=== PATIENT | male | born 1995 | race Two or more races ===

== ENCOUNTER → 2018-02-21 | Outpatient (CLI) | payer OTHER | END | disposition home or self-care (01) | LOC: RAH 11:44 → EEVIPCON 11:44 | PROVIDERS: ATTEND Internal Medicine | DX: N63.10 Unspecified lump in the right breast, unspecified quadrant (principal) | CPT/HCPCS: 76641 ==

== ENCOUNTER → 2018-03-28 | Outpatient (CLI) | payer OTHER | END | disposition home or self-care (01) | LOC: RAH 11:46 → EEVIPCON 11:46 | PROVIDERS: ATTEND Internal Medicine | DX: D16.01 Benign neoplasm of scapula and long bones of right upper limb (principal) | CPT/HCPCS: 73030 ==